=== PATIENT | female | born 2005 | race Caucasian/White ===

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

== ENCOUNTER 2023-04-21 09:31 | Outpatient (CLI) | payer BC, SELFPAY ==
[2023-04-21 10:17] LABS: Basophils Absolute Auto 0.02 K/mm3 (0.00-0.10); Basophils Percent Auto 0.4 % (0.0-1.0); Eosinophils Absolute Auto 0.07 K/mm3 (0.02-0.50); Eosinophils Percent Auto 1.5 % (1.0-6.0); Hematocrit 39.5 % (35.0-49.0); Hemoglobin 13.4 g/dL (12.0-15.0); Immature Granulocyte Absolute 0.02 K/mm3 (0.00-0.00); Immature Granulocyte Percent A 0.4 % (0.0-0.0); Lymphocytes Percent Auto 34.4 % (18.0-42.0); Mean Corpuscular HGB Conc 33.9 g/dL (32.0-36.0); Mean Corpuscular Hemoglobin 28.2 pg (27.0-31.0); Mean Platelet Volume 10.1 fl (9.2-11.8); Monocytes Absolute Auto 0.52 K/mm3 (0.10-0.90); Monocytes Percent Auto 11.2 % (2.0-11.0); Neutrophils Absolute Auto 2.4 K/mm3 (1.7-7.2); Neutrophils Percent Auto 52.1 % (50.0-70.0); Platelet Count Result 243 K/mm3 (150-420); Red Blood Count 4.76 M/mm3 (4.20-5.40); Red Cell Distribution Width 12.4 % (11.6-14.4); White Blood Count 4.7 K/mm3 (4.8-10.8)
[2023-04-21 11:38] LABS: Alanine Aminotransferase 20 U/L (14-59); Albumin Level 4.1 g/dL (3.4-5.0); Alkaline Phosphatase 27 U/L (46-116); Anion Gap 11 mmol/L (8-16); Aspartate Amino Transferase 12 U/L (15-37); Bilirubin,Total 0.5 mg/dL (0.00-1.00); Blood Urea Nitrogen 10 mg/dL (7-18); Carbon Dioxide 26 mmol/L (21-32); Chloride 104 mmol/L (98-108); Estimated Glomerular Filt Rate > 60; Free T4 Free Thyroxine 0.96 ng/dL (0.76-1.46); Glucose 81 mg/dL (70-99); Iron 82 ug/dL (50-170); Osmolality Calculated 290 mOsm/kg (285-295); Potassium 4.5 mmol/L (3.5-5.1); Sodium 141 mmol/L (136-145); Thyroid Stimulating Hormone 2.06 uIU/mL (0.36-3.74); Total Protein 7.6 g/dL (6.4-8.2); Vitamin B12 477 pg/mL (193-986)
== END 2023-04-21 09:32 | disposition home or self-care (01) ==
LOC: CHSLAB 09:33
PROVIDERS: PCP Nurse Practitioner Family; Visit Provider Nurse Practitioner Family
DX: R55 Syncope and collapse (principal)
CPT/HCPCS: 36415; 80053; 82607; 83540; 84439; 84443; 85025

== ENCOUNTER 2023-05-06 11:51 | Outpatient (CLI) | payer BC, SELFPAY ==
--- NOTE | ~2023-05-06 | XR_ITS ---
CORRECTED REPORT exam description change 05/18/23 [facility] This report was recreated on 05/18/23. Original report was Right Knee Technique: AP, lateral, and sunrise views were obtained. Clinical History: Pain Findings: No fracture or dislocation is seen. Osseous alignment is anatomic. Joint spaces are preserved without degenerative or erosive change. Soft tissues are unremarkable. No joint effusion is seen. Impression: Unremarkable right knee radiographs. Reviewed, dictated and finalized at location M. MTDD Impression: Unremarkable right knee radiographs.
== END 2023-05-06 11:52 | disposition home or self-care (01) ==
LOC: CHSIMG 11:53
PROVIDERS: PCP Nurse Practitioner Family; Visit Provider Nurse Practitioner Family
DX: M25.562 Pain in left knee (principal)
CPT/HCPCS: 73562

== ENCOUNTER 2023-05-10 08:25 | Outpatient (RCR) | payer BC, SELFPAY ==
--- NOTE | 2023-05-10 10:21 | PTOPEVAL1 ---
Assessment and note entered by LIV Leiva PT Evaluation Information Assessment Status Evaluation Diagnosis R knee pain Onset 04/30/23 Subjective Information Patient reports that pain in her R knee started on April 30 while playing volleyball. She reports she jumped and upon landing on knee, pain began in the right knee. She notes feeling a pop during this injury. She notes this pain got worse with continued activity and kneeling. Patient reports she has had x-ray imaging that found no evidence of fracture. however, she has not recieved an MRI scan. She reports Sep 2021 she had a R plica excision, and since then felt has had bouts of pain in the R knee prior to current injury. She reports she has been treating the pain with over the counter NSAIDs, ice/compression, and slight exercises. She notes she has had increased swelling in the R knee both with and without activity since, especially later on in the day. Patient reports the pain keeps her awake at night. She notes difficulty with stairs and walking throughout the day due to pain. She currently works at [employer], where she is required to stand to perform work activities. Reported Pain Level Pain Score 6: Self Report Assessment PT Clinical Summary Ms. Palumbo is a 18 y/o female who presents to skilled PT for R knee pain following a sports injury. Assessment suggests possible R medial meniscus and R MCL pathology. She presents with impairments in gait, ROM, and strength. She also displays notabel swelling and pain at rest and with activity in the R knee. Appropriate to continue skilled therapy to address impairments and improve patient's tolerance to mobility for work and daily activities. She would benefit from an MRI of the R knee to rule out any soft tissue injuries requiring more rapid attention from an ortho surgeon. evaluation and treatment performed under the supervision of Cecil Leiva DPT Plan of Care Interventions Electrical Stimulation,Gait Training,Hot Pack/Cold Pack,Intermittent Compression,Manual Therapy, Neuro Re-education,Patient/Caregiver Educati, Therapeutic Activities,Therapeutic Exercise PT Services Indicated Yes Treatment Frequency and 3 x/week fo
--- NOTE | 2023-05-10 10:21 | OPREHPOC ---
Outpatient Therapy Plan of Care This is a Multidisciplinary Plan of Care that may contain components documented by all disciplines (PT, OT, and ST.) PT Problem 1 PT Problem #1 Knowledge Deficit PT Goal 1 Goal Pt to demonstrate independence with HEP to improve progress made in PT sessions. Target Visit 7 PT Problem 2 PT Problem #2 Pain PT Goal 1 Goal 1. Patient to report no more than 3/10 pain with daily activities to improve tolerance for mobility . Target Visit 15 PT Problem 3 PT Problem #3 Impaired Strength PT Goal 1 Goal 1. Pt to increase R knee extension strength to at least 4+/5 to improve patient's ability to perform squat. 2. Pt to increase R knee flexion strength to at least 4+/5 to improve patient's ability to manuever stairs. Target Visit 15 PT Goal 1 Goal 1. Patient to improve R knee extension range of motion to 0 degrees to aid in acheiving R terminal knee extension during gait cycle. 2. Patient to improve R knee flexion range of motion to at least 140 degrees to allow for patient to squat to last picker item from floor. Target Visit 15 PT Problem 5 PT Problem #5 Impaired Functional Mobil PT Goal 1 Goal 1. Pt to ambulate with full R terminal knee extension to normalize gait. Target Visit 15
--- NOTE | 2023-06-22 16:38 | OPREHPOC ---
Outpatient Therapy Plan of Care This is a Multidisciplinary Plan of Care that may contain components documented by all disciplines (PT, OT, and ST.) PT Problem 1 PT Problem #1 Knowledge Deficit PT Goal 1 Goal Pt to demonstrate independence with HEP to improve progress made in PT sessions. Target Visit 7 Progress Partially Met Comment continue to progress PT Problem 2 PT Problem #2 Pain PT Goal 1 Goal 1. Patient to report no more than 3/10 pain with daily activities to improve tolerance for mobility . Target Visit 15 Progress Partially Met Comment continue to address PT Problem 3 PT Problem #3 Impaired Strength PT Goal 1 Goal 1. Pt to increase R knee extension strength to at least 5/5 to improve patient's ability to perform squat. 2. Pt to increase R knee flexion strength to at least 5/5 to improve patient's ability to manuever stairs. Target Visit 15 Progress Partially Met Comment goal updated PT Goal 1 Goal 1. Patient to improve R knee extension range of motion to 0 degrees to aid in acheiving R terminal knee extension during gait cycle. 2. Patient to improve R knee flexion range of motion to at least 140 degrees to allow for patient to squat to tack picker item from floor. Target Visit 15 Progress Partially Met Comment goal 2 met, continue to address goal 1 PT Problem 5 PT Problem #5 Impaired Functional Mobil PT Goal 1 Goal 1. Pt to ambulate with full R terminal knee extension to normalize gait. Target Visit 15 Progress Partially Met Comment continue to address
--- NOTE | 2023-06-22 16:38 | PTOPPROGNS ---
Assessment and note entered by JT File, PT Evaluation Information Assessment Status Progress Diagnosis R knee pain Onset 04/30/23 Subjective Information Patient reports a lower pain level in the R knee today. She notes that she visited the orthopedist yesterday where she received a cortisone injection in the knee. Since the injection she has had reduced pain both at rest and with actvities. she notes that her leg still feels weak compared to the opposite side. Assessment PT Clinical Summary Ms. Palumbo has attended 10 visits of skilled PT to address R knee pain, making good progress towards goals. At this visit, she demonstrates improved R knee ROM, strength, and flexibility. however, she continues to be limited compared to the L LE. Patient instructed on performing knee extension ROM exercises at home to work on gaining range at home. Appropriate to continue skilled therapy to address remaining strength deficits and normalize gait pattern to allow for patient to return to prior level of activity. Plan of Care Interventions Electrical Stimulation,Gait Training,Hot Pack/Cold Pack,Intermittent Compression,Manual Therapy, Neuro Re-education,Patient/Caregiver Educati, Therapeutic Activities,Therapeutic Exercise PT Services Indicated Yes Treatment Frequency and continue 3 x/week for remaining 5 visits Duration These treatments will address the objective and functional deficits as defined above. The patient will be advanced safely and appropriately in order for the patient to progress towards his/her prior level of function. Additional exercises will be introduced and as well as a comprehensive home exercise program upon discharge, if needed, ?to ensure carryover of functional gains achieved in the clinic. This treatment plan has been reviewed and agreement upon by the patient.
--- NOTE | 2023-07-13 17:04 | OPREHPOC ---
Outpatient Therapy Plan of Care This is a Multidisciplinary Plan of Care that may contain components documented by all disciplines (PT, OT, and ST.) PT Problem 1 PT Problem #1 Knowledge Deficit PT Goal 1 Goal Pt to demonstrate independence with HEP to improve progress made in PT sessions. Target Visit 7 Progress Met Comment continue to progress PT Problem 2 PT Problem #2 Pain PT Goal 1 Goal 1. Patient to report no more than 3/10 pain with daily activities to improve tolerance for mobility . Target Visit 15 Progress Not Met Comment continue to address PT Problem 3 PT Problem #3 Impaired Strength PT Goal 1 Goal 1. Pt to increase R knee extension strength to at least 5/5 to improve patient's ability to perform squat. 2. Pt to increase R knee flexion strength to at least 5/5 to improve patient's ability to manuever stairs. Target Visit 15 Progress Partially Met Comment goal updated PT Goal 1 Goal 1. Patient to improve R knee extension range of motion to 0 degrees to aid in acheiving R terminal knee extension during gait cycle. 2. Patient to improve R knee flexion range of motion to at least 140 degrees to allow for patient to squat to picker packer item from floor. Target Visit 15 Progress Met Comment goal 2 met, continue to address goal 1 PT Problem 5 PT Problem #5 Impaired Functional Mobil PT Goal 1 Goal 1. Pt to ambulate with full R terminal knee extension to normalize gait. Target Visit 15 Progress Met Comment continue to address
--- NOTE | 2023-07-13 17:04 | PTOPDC ---
Assessment and note entered by JT File, PT Evaluation Information Assessment Status Discharge Diagnosis R knee pain Onset 04/30/23 Subjective Information patient reports pain has slowly been creeping back up/returning over the past few weeks. she reports she especially has increased pain with stairs. she had an injection to the R knee in the beginning of june. Reported Pain Level Pain Score 5: Self Report Assessment PT Clinical Summary ms. blackwood presents to skilled PT with returning signs of pain in the R knee. she reports increased pain in the R knee with stairs again. she ambulates with normal gait mechanics, ambulates stairs reciprocally, has near full strength of the R knee, and full mobility of the R knee. she denotes pain with palpation of the medial jt line of the R knee, but some inconsistent special testing. she would benefit from DC of skilled PT today, and return to MD for follow up and next steps. Plan of Care PT Services Indicated Yes
== END 2023-07-13 16:50 | disposition home or self-care (01) ==
LOC: CHSPT 08:25
PROVIDERS: PCP Family Medicine; Visit Provider Nurse Practitioner Family
DX: M25.562 Pain in left knee (principal)
CPT/HCPCS: 97014; 97016; 97110; 97112; 97140; 97161; 97530; G0283

== ENCOUNTER 2024-08-17 09:33 | Outpatient (CLI) | payer BC, SELFPAY ==
--- NOTE | ~2024-08-17 | MR_ITS ---
EXAMINATION: MR knee RT wo con DATE: 08/17/2024 10:04 INDICATION: Right knee pain and intermittent swelling. TECHNIQUE: Magnetic resonance imaging (MRI) of the right knee was performed without intravenous contr ast. Sequences included coronal PD-weighted FSE, coronal PD-weighted FS FSE, sagittal T2-weighted FS E, sagittal PD-weighted FS FSE and axial PD weighted fat saturated FSE. COMPARISON: Right knee radiographs dated 05/06/2023 FINDINGS: Medial compartment: Medial meniscus is normal. Articular cartilage is normal. Lateral compartment: Lateral meniscus is normal. Articular cartilage is normal. Patellofemoral compartment: Articular cartilage is normal. Ligaments and tendons: Anterior and posterior cruciate ligaments are normal. The medial collateral ligament and fibular james ateral ligament complex are normal. The extensor mechanism is normal. The visualized medial and later al hamstring tendons as well as the iliotibial band are normal. Fluid: Physiologic amount of fluid in the joint space. No loose osteochondral bodies identified. Osseous/other: Normal marrow signal. No fracture or pathologic marrow replacing process. IMPRESSION: 1. Normal MRI of the right knee. Reviewed, dictated and finalized at location A.
== END 2024-08-17 09:34 | disposition home or self-care (01) ==
LOC: GOSHIMG 09:36
PROVIDERS: PCP Physician Assistant; Visit Provider Physician Assistant
DX: M25.561 Pain in right knee (principal); G89.29 Other chronic pain
CPT/HCPCS: 73721

== ENCOUNTER 2025-07-04 11:03 | Emergency (ER) | payer BC, SELFPAY ==
--- NOTE | ~2025-07-04 | CT_ITS ---
EXAMINATION: CT abdomen pelvis wo hollis, 07/04/2025 11:32 CDT HISTORY: abdominal pain /flank pain right-sided COMPARISON: No comparisons available. TECHNIQUE: CT scan of the abdomen and pelvis was performed without IV contrast. One or more of the following dose reduction techniques were used: automated exposure control, adjustment of the mA and/or kV according to patient size, use of iterative reconstruction technique. Unless otherwise stated, incidental findings do not require dedicated follow up imaging FINDINGS: CT abdomen: LUNG BASES: The lung bases are clear. The visualized portions of the heart and pericardium are unremarkable. LIVER: Unremarkable, liver contours intact, no lesions. SPLEEN: Unremarkable, no splenomegaly. KIDNEYS: Right Kidney: Unremarkable. No calculi. No hydronephrosis. Left Kidney: Unremarkable. No calculi. No hydronephrosis ADRENAL GLANDS: Unremarkable. PANCREAS: Unremarkable. GALLBLADDER/BILIARY: Unremarkable. No biliary dilatation. STOMACH AND ESOPHAGUS: Visualized stomach and esophagus within normal limits. BOWEL/MESENTERY: No colitis or diverticulitis. Appendix is air-filled. Mesentery normal. No dilated small bowel loops. ADENOPATHY/RETROPERITONEUM: No lymphadenopathy. AORTA/VASCULATURE: Normal caliber aorta. FREE FLUID OR FREE AIR: None. CT pelvis: SOLID ORGANS/REPRODUCTIVE: Unremarkable. BLADDER: Within normal limits. OSSEOUS STRUCTURES: No acute osseous abnormality.No suspicious lesions. OVERLYING SOFT TISSUES: Unremarkable. IMPRESSION: 1. No etiology identified to explain the patient's symptoms. Follow-up suggested if symptoms persist. Reviewed, dictated and finalized at location A. IMPRESSION: 1. No etiology identified to explain the patient's symptoms. Follow-up suggeste d if symptoms persist.
[2025-07-04 11:09] VITALS: BP 120/85; PULSE 78; RESP 18; TEMP 36.4; O2SAT 100
[2025-07-04 11:30] VITALS: BP 116/78; PULSE 80; RESP 17; O2SAT 100
--- OUTSIDE RECORDS SUMMARY | 2025-07-04 11:36 | XMS_ITS | Clinical Summary ---
Author Organization [facility] Address [facility] [address] [place] [address] Care Team Providers Care Assistant Pastry Chef Name Role Phone Shanique Barkley NP Primary Care Provider [phone] Cecil Sellers PT Unavailable [phone] Allergies No known active allergies Medications melatonin tablet Take 3 mg by mouth nightly as needed for sleep Active lisdexamfetamin e (VYVANSE) 40 mg capsule Take 1 capsule (40 mg total) by mouth every morning 06/18/2024 Active escitalopram (LEXAPRO) 10 mg tablet Take 1 tablet (10 mg total) by mouth daily Active Active Problems Problem Noted Date Diagnosed Date Plica syndrome of right knee 10/20/2021 Chronic pain of right knee 09/17/2021 Bone bruise 04/16/2021 Acute pain of right knee 03/10/2021 Injury of right knee 03/10/2021 Immunizations Immunization Administration Dates Next Due Meningococcal MCV4P (Menactra) 06/27/2020 Surgical History Surgery Date Site/Laterality Comments WISDOM TOOTH EXTRACTION 10/17/2018 - 10/16/2019 EYE SURGERY 10/17/2007 - 10/16/2008 Left eyelid KNEE ARTHROSCOPY W/ LATERAL RELEASE 10-07-2021 KNEE ARTHROSCOPY Medical History Medical History Date Comments Motion sickness Family History Medical History Relation Name Comments Arthritis Other Alzheimer's disease Paternal Grandfather Dallin Shanks on Diabetes Paternal Grandfather Dallin Palumbo Alzheimer's disease Paternal Grandmother Tonya beatty Anesthesia problems Neg Hx Relation Name Status Comments Other Paternal Grandfather Dallin Palumbo Paternal Grandmother Tonya Palumbo Social History Tobacco Use Types Packs/Day Years Used Date Smoking Tobacco: Never Smokeless Tobacco: Never Tobacco Cessation:Counseling Given: Not Answered AUDIT-C Answer Date Recorded Q1: How often do you have a drink containing alcohol? Never 02/11/2025 Q2: How many drinks containi ng alcohol do you have on a typical day when you are drinking? Patient does not drink Q3: How often do you have si x or more drinks on one occasion? Never 02/11/2025 Comments No Sex and Gender Information Value Date Recorded Sex Assigned at Not on file Legal Sex Female 5:41 AM ASSISTED LIVING ASSOCIATE Gender Identity Female 05/19/2023 5:37 PM CDT Sexual Orientation Straight 09/17/2021 10 :21 AM ASSISTED LIVING ASSOCIATE Obstetrics History Last Filed Vital Signs Vital Sign Reading Time Taken Comments Blood Pressure 112/74 02/20/2025 2:08 PM CDT Pulse 63 02/20/2025 2:08 PM CDT Temperature 36.5 C (97.7 F) 10/07/2021 10:06 AM ASSISTED LIVING ASSOCIATE Respiratory Rate 15 10/07/2021 10:08 AM ASSISTED LIVING ASSOCIATE Oxygen Saturation 100% 10/07/2021 10:08 AM ASSISTED LIVING ASSOCIATE Inhaled Oxygen Concentration - - Weight 51.3 kg (113 lb) 02/20/2025 2:08 PM CDT Height 157.5 cm (5' 2) 02/20/2025 2:08 PM CDT Body Mass Index 20.67 02/20/2025 2:08 PM CDT Plan of Treatment Health Maintenance Due Date Last Done Comments Cervical Cancer Screening 2003 Depression Screening 2003 Hepatitis C Screening 2003 DTaP/Tdap/Td Vaccine (1 - Tdap) 2014 Varicella Vaccines (1 of 2 - 13+ 2-dose series) 2016 HPV Vaccines (1 - 3-dose series) 2018 Meningococcal B Vaccine (1 o f 2 - Standard) 2019 Hepatitis B Screening 2021 Regular Well Visit/Exam 18-64 2021 Covid-19 Vaccine ( - 2024-2 6 season) 2025 10/30/2021, 05/25/2021, 05/04/2021 Influenza Vaccine (#1) 2025 Pneumococcal vaccine <65 Aged Out No longer eligible based on patient's age to complete this topic Insurance [employer] OOS [employer] OOS Advance Directives For more information, please contact: [phone] * Full Code (Latest Code Status on File) Date Activated Date Inactivated Comments 10/07/2021 9:13 AM 10/07/2021 2:17 PM Care Teams Assistant Pastry Chef Relationship Specialty Start Date End Date Shanique Barkley NP [address] [place] [address] PCP - General Nurse Practitioner 03/03/21 [place] [address] [place] [address] Physical Therapist Physical Therapy 04/02/21
[2025-07-04 11:43] LABS: Add Urine Microscopic? YES; Appearance Urine Clear (Clear); Glucose Urine UA Negative (Negative); Leukocyte Esterase Ur Negative LEU/UL (Negative); Nitrate Urine Negative (Negative); Specific Grav Ur 1.020 (1.010-1.020)
[2025-07-04 11:49] LABS: Pregnancy On Board Control Positive
[2025-07-04 11:53] LABS: Hematocrit 38.4 % (35.0-49.0); Hemoglobin 12.9 g/dL (12.0-15.0); Immature Granulocyte Percent A 0.2 % (0.0-0.0); Lymphocytes Absolute Auto 1.48 K/mm3 (1.10-4.50); Mean Corpuscular HGB Conc 33.6 g/dL (32-36); Mean Corpuscular Hemoglobin 26.9 pg (27.0-31.0); Mean Corpuscular Volume 80.2 fL (78.0-102.0); Nucleated Red Blood Cells Absolute Auto 0.00 K/mm3 (0.00-0.00); Nucleated Red Blood Cells Perc 0.0 % (0-0.0); Platelet Count Result 264 K/mm3 (150-420); Red Blood Count 4.79 M/mm3 (4.20-5.40); White Blood Count 4.6 K/mm3 (4.8-10.8)
--- NOTE | 2025-07-04 11:57 | PC.NURSE ---
Patient down in radiology
[2025-07-04 12:00] VITALS: BP 112/82; PULSE 85; RESP 18; O2SAT 100
--- OUTSIDE RECORDS SUMMARY | 2025-07-04 12:00 | XMS_ITS | Clinical Summary ---
Author Organization [facility] Address [address] [place] [address] Care Team Providers Care Clinical Audiologist Name Role Phone Shanique Barkley [facility] Primary Care Provider [phone] Allergies No known active allergies Medications No known medications Active Problems Problem Noted Date Diagnosed Date Sprain of medial collateral ligament of right knee, initial encounter 02/09/2021 Acute medial meniscus tear, right, initial encou nter 02/09/2021 Family History Medical History Relation Comments No Known Problems Father No Known Problems Mother Relation Status Comments Father Alive Mother Alive Social History Tobacco Use Types Packs/Day Years Used Date Smoking Tobacco: Never Smokeless Tobacco: Never Alcohol Use Standard Drinks/Week Comments Never 0 (1 standard drink = 0.6 oz pur e alcohol) AUDIT-C Answer Date Recorded Q1: How often do you have a drink containing alc ohol? 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 Gender Identity Not on file Sexual Orientation Not on file Last Filed Vital Signs Vital Sign Reading Time Taken Comments Blood Pressure - - Pulse - - Temperature - - Respiratory Rate - - Oxygen Saturation - - Inhaled Oxygen Concentration - - Weight 52.2 kg (115 lb) 02/26/2021 1:45 PM CDT Height 160 cm (5' 3) 02/26/2021 1:45 PM CDT Body Mass Index 20.37 02/26/2021 1:45 PM CDT Plan of Treatment Health Maintenance Due Date Last Done Comments Cervical Cancer Screening Pa p Smear (Age 21 to 29) Every 3 Years 2003 Cervical Cancer Screening 2003 Annual Physical 2006 HPV Vaccines (1 - 3-dose series) 2018 Meningococcal B Vaccine (1 o f 2 - Standard) 2019 Hepatitis C 2021 DTaP, Tdap and Td Vaccines ( 1 - Tdap) 2022 Hepatitis B Vaccines (1 of 3 - 19+ 3-dose series) 2022 COVID-19 Vaccine (1 - 4-2 5 season) 2025 Meningococcal Vaccine Completed 06/27/2020 Pneumococcal Vaccine: Pediat rics (0 to 5 Years) and At-Risk Patients (6 to 49 Years) Aged Out No longer eligi ble based on patient's age to complete this topic RSV Immunizations Under 20 Months Aged Out No longer eligible based on patient's age to complete this topic Insurance [employer] [place] [address] Care Teams Clinical Audiologist Relationship Specialty Start Date End Date Shanique Barkley, OZ [address] [place] [address] PCP - General NURSE PRACTITIONER 02/05/21
--- OUTSIDE RECORDS SUMMARY | 2025-07-04 12:01 | XMS_ITS | Clinical Summary ---
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 Obstetrics History Last Filed Vital Signs Vital Sign Reading Time Taken Comments Blood Pressure 112/74 02/20/2025 2:08 PM CDT Pulse 63 02/20/2025 2:08 PM CDT Temperature 36.5 C (97.7 F) 10/07/2021 10:06 AM CHILD CARE CENTRE 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 Respiratory Rate 15 10/07/2021 10:08 AM CHILD CARE CENTRE MANAGER Oxygen Saturation 100% 10/07/2021 10:08 AM CHILD CARE CENTRE MANAGER Inhaled Oxygen Concentration - - Weight 51.3 [...] patient's age to complete this topic Insurance [employer] OOS [employer] OOS Advance Directives For more information, please contact: [phone] * Full Code (Latest Code Status on File) Date Activated Date Inactivated Comments 10/07/2021 9:13 AM 10/07/2021 2:17 PM Care Teams Locomotive Electrician Relationship Specialty Start Date End Date Shanique Barkley NP [address] [place] [address] PCP - General Nurse Practitioner 03/03/21 [place] [address] [place] [address] Physical Therapist Physical Therapy 04/02/21
[2025-07-04 12:10] LABS: INR 1.0; Partial Thromboplastin Time 28.5 Sec (23.9-30.70); Prothrombin Time 11.0 Seconds (9.50-12.1)
[2025-07-04 12:16] LABS: Alanine Aminotransferase 16 U/L (6-35); Albumin Level 4.9 g/dL (3.5-5.1); Alkaline Phosphatase 33 U/L (38-126); Anion Gap 12 mmol/L (4-12); Aspartate Amino Transferase 23 U/L (14-36); Bilirubin,Total 0.9 mg/dL (0.2-1.3); Blood Urea Nitrogen 7 mg/dL (7-17); Calcium 9.8 mg/dL (8.4-10.2); Carbon Dioxide 24 mmol/L (22-30); Chloride 104 mmol/L (98-107); Estimated CRCL calculation 68 ml/min; Estimated Glomerular Filt Rate > 60; Glucose 88 mg/dL (65-110); Lipase 62 U/L (23-300); Osmolality Calculated 287 mOsm/kg (285-295); Potassium 4.0 mmol/L (3.4-5.0); Sodium 140 mmol/L (137-145); Total Protein 8.8 g/dL (6.3-8.2)
[2025-07-04] MEDS: ONDANSETRON INJ 4 MG/2 ML VIAL IV PUSH (12:21)
[2025-07-04] MEDS: SODIUM CHLORIDE 0.9% IV 1,000 ML 999 ML IV CONT (12:21)
[2025-07-04 12:30] VITALS: BP 100/76; PULSE 65; RESP 18; O2SAT 100
[2025-07-04 12:35] LABS: CRP < 0.5 mg/dL (<1.0)
--- NOTE | 2025-07-04 12:51 | ED_ITS ---
HPI - Female Genitourinary General Chief complaint: Urogenital-Female Stated complaint: right flank pain urge to urinate Time Seen by Provider: 07/04/25 11:06 Source: patient and family Mode of arrival: ambulatory Limitations: no limitations History of Present Illness HPI Narrative: this is a 20-year-old female with no significant past medical history presents with her mother with some right flank and growing pain on the right side with pain rated about a 7/10 with nausea with no vomiting does have dysuria with no hematuria no fever chills no chest pain no shortness of breath. MD elicited complaint: dysuria Onset (ago): hour(s) Location of symptoms: suprapubic and flank Severity: moderate Consistency: intermittent Related Data Home Medications ?Medication ?Instructions ?Recorded ?Confirmed ?Last Taken ?Type lisdexamfetamine 40 mg capsule mg PO 02/04/25 06/20/25 Unknown History Allergies Allergy/AdvReac Type Severity Reaction Status Date / Time bee venom protein (honey Allergy Intermediate Anaphylaxis Verified 07/04/25 11:21 bee) (bees) Bee stings Allergy Intermediate Other Uncoded 06/20/25 10:40 Review of Systems 2 Review of Systems: All systems reviewed & are unremarkable except as noted in HPI and below PMFSH Past Medical History Medical History Right knee pain Raynaud's syndrome without gangrene Surgical History Surgical History No history of previous surgery Family History Family History Mother Family history unremarkable Social History Social History Smoking status: Never smoker Tobacco type: cigarettes Alcohol intake: never Lack of Transportation: No Lack of Food: Never True Current Housing: I Have Housing Concerned About Future Housing: No Difficulty Paying Gas/Electric Bills: No Difficulty Paying for Meds: No Currently Unemployed: No Education: High School Diploma/GED Living arrangements: with family Exam 2 Const: General: healthy appearing and no acute distress Nutritional Appearance: well nourished Orientation/consciousness: patient oriented x3 Limitations: no limitations Eyes: Pupils: Equal, round and reactive pupils present Neck: Neck: normal visual inspection, no lymphadenopathy and no meningeal signs Chest: Chest palpation & inspection: normal inspection of the chest Resp: Effort & Inspection: normal respiratory effort Auscultation: clear to auscultation bilaterally Cardio: Rate: regular rate Rhythm: regular rhythm GI: GI Palp: Yes Soft to palpation Auscultation: normal bowel sounds : General: Yes bladder normal to palpation Urinary Catheter: Urinary Catheter: patent and draining Back/Spine/Pelvis: Back: no CVA tenderness Skin: General skin exam: normal color Rashes: no rashes Wounds: no wounds Neuro: General: patient oriented x3, moves all extremities and no meningeal signs Extrem: General: normal to inspection Psych: Appearance: grossly normal Course Course Emergency Course: CT scan performed shows no acute abnormalities UA shows positive red blood cells and positive bacteria, labs reviewed with no acute abnormalities patient received IV fluids along with some Zofran. Vital Signs Vital signs: Vital Signs Temperature 36.4 C 07/04/25 11:09 Pulse Rate 78 07/04/25 11:09 Respiratory Rate 18 07/04/25 11:09 Blood Pressure 120/85 07/04/25 11:09 Pulse Oximetry 100 07/04/25 11:09 Oxygen Delivery Room Air 07/04/25 11:09 Temperature 36.4 C 07/04/25 11:09 Pulse Rate 78 07/04/25 11:09 Respiratory Rate 18 07/04/25 11:09 Blood Pressure 120/85 07/04/25 11:09 Pulse Oximetry 100 07/04/25 11:09 Oxygen Delivery Room Air 07/04/25 11:09 MDM - Female Genitourinary Lab Data 07/04/25 11:44 07/04/25 11:44 Labs: Lab Results 07/04/25 07/04/25 Range/Units 11:38 11:44 WBC 4.6 L (4.8-10.8) K/mm3 RBC 4.79 (4.20-5.40) M/mm3 Hgb 12.9 (12.0-15.0) g/dL Hct 38.4 (35.0-49.0) % MCV 80.2 (78.0-102.0) fL MCH 26.9 L (27.0-31.0) pg MCHC 33.6 (32-36) g/dL RDW 12.7 (11.6-14.4) % Plt Count 264 (150-420) K/mm3 MPV 10.5 (9.2-11.8) fl Immature Gran % (Auto) 0.2 H (0.0-0.0) % Neut % (Auto) 56.4 (50.0-70.0) % Lymph % (Auto) 32.1 (18.0-42.0) % [place] % (Auto) 10.0 (2.0-11.0) % Eos % (Auto) 1.1 (1.0-6.0) % Baso % (Auto) 0.2 (0.0-1.0) % Lymph # (Auto) 1.48 (1.10-4.50) K/mm3 [place] # (Auto) 0.46 (0.10-0.90) K/mm3 Eos # (Auto) 0.05 (0.02-0.50) K/mm3 Baso # (Auto) 0.01 (0.00-0.10) K/mm3 Abs Immat Gran (auto) 0.01 H (0.00-0.00) K/mm3 Absolute Neuts (auto) 2.60 (1.70-7.20) K/mm3 Absolute Nucleated RBC 0.00 (0.00-0.00) K/mm3 Nucleated RBC % 0.0 (0-0.0) % PT 11.0 (9.50-12.1) Seconds INR 1.0 APTT 28.5 (23.9-30.70) Sec Sodium 140 (137-145) mmol/L Potassium 4.0 (3.4-5.0) mmol/L Chloride 104 (98-107) mmol/L Carbon Dioxide 24 (22-30) mmol/L Anion Gap 12 (4-12) mmol/L BUN 7 (7-17) mg/dL Creatinine 0.86 (0.7-1.0) mg/dL Estim Creat Clear Calc 68 ml/min Estimated GFR > 60 (59 - ) Glucose 88 (65-110) mg/dL Calculated Osmolality 287 (285-295) mOsm/kg Lactic Acid 1.0 (0.4-2.0) mmol/L Calcium 9.8 (8.4-10.2) mg/dL Total Bilirubin 0.9 (0.2-1.3) mg/dL AST 23 (14-36) U/L ALT 16 (6-35) U/L Alkaline Phosphatase 33 L (38-126) U/L C-Reactive Protein < 0.5 (<1.0) mg/dL Total Protein 8.8 H (6.3-8.2) g/dL Albumin 4.9 (3.5-5.1) g/dL Lipase 62 (23-300) U/L Urine Color Yellow (Yellow) Urine Appearance Clear (Clear) Urine pH 5.5 (5.0-8.0) Ur Specific Mallie 1.020 (1.010-1.020) Urine Protein Negative (Negative) Urine Glucose (UA) Negative (Negative) Urine Ketones Trace H (Negative) Ur Blood (Man) 3+ H (Negative) Urine Nitrate Negative (Negative) Urine Bilirubin Negative (Negative) Urine Urobilinogen 0.2 (0.2-1.0) mg/dL Leukocyte Esterase Rfl Negative (Negative) SHYAM/UL Urine RBC 21-50 H (0-2) /hpf Urine WBC 0-3 (0-3) /hpf Ur Squamous Epith Cells Rare (Few) /hpf Urine Bacteria 1+ H (None) /hpf Urine Mucus Few H /lpf Urine Test Negative Critical Care Time Critical Care Time Critical Care Time: No Discharge Plan Discharge Clinical Impression: Urinary tract infection Qualifiers: Urinary tract infection type: site unspecified Hematuria presence: without hematuria Qualified Code(s): N39.0 - Urinary tract infection, site not specified Patient Disposition: Home Condition: Stable Instructions: Antibiotic Form, Urinary Tract Infection in Women (ED), Dysuria (ED) Additional Instructions: take medication as prescribed and follow with primary within the next 3 to 5 days if symptoms persist or worsen. Patient Language: Indonesian Prescriptions: New tramadol 50 mg tablet 50 mg PO Q6H PRN (Reason: pain) Qty: 20 0RF ondansetron 4 mg tablet,disintegrating 4 mg PO Q6H PRN (Reason: nausea and vomiting) Qty: 14 0RF nitrofurantoin monohyd/m-cryst [Macrobid] 100 mg capsule 100 mg PO Q12H 7 Days Qty: 14 0RF Rx Instructions: must administer with a meal/food No Action lisdexamfetamine 40 mg capsule PO Follow-up/Referrals: Asehr Kwan DO [Primary Care Provider, [facility]] Time of Disposition: 12:58
[2025-07-04 13:00] VITALS: BP 109/97; PULSE 66; RESP 18; O2SAT 98
[2025-07-04 13:08] VITALS: BP 109/97; PULSE 66; RESP 18; TEMP 36.6; O2SAT 98
--- NOTE | 2025-07-07 17:46 | PC.NURSE ---
BLOOD CULTURE NO GROWTH PRELIMINARY
--- NOTE | 2025-07-11 13:50 | PC.NURSE ---
final blood cultures x2 reviewed. no growth in 5 days. no change in plan of care.
== END 2025-07-04 13:08 | disposition home or self-care (01) ==
PROVIDERS: Emergency Provider Emergency Medicine; PCP Family Medicine
DX: N39.0 Urinary tract infection, site not specified (principal)
CPT/HCPCS: 36415; 74176; 80053; 81001; 81025; 83605; 83690; 85025; 85610; 85730; 86140; 87040; 96361; 96374; 96375; 99284; J2405; J7030

== ENCOUNTER 2025-07-11 10:00 | Outpatient (CLI) | payer BC, SELFPAY ==
--- OUTSIDE RECORDS SUMMARY | 2025-07-11 10:59 | XMS_ITS | Clinical Summary ---
Author Organization 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
--- OUTSIDE RECORDS SUMMARY | 2025-07-11 11:00 | XMS_ITS | Clinical Summary ---
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 Gender Identity Female 05/19/2023 5:37 PM CDT Sexual Orientation Straight 09/17/2021 10 :21 AM EVALUATOR TRANSFER STUDENTS Obstetrics History Last Filed Vital Signs Vital Sign Reading Time Taken Comments Blood Pressure 112/74 02/20/2025 2:08 PM CDT Pulse 63 02/20/2025 2:08 PM CDT Temperature 36.5 C (97.7 F) 10/07/2021 10:06 AM EVALUATOR TRANSFER STUDENTS Respiratory Rate 15 10/07/2021 10:08 AM EVALUATOR TRANSFER STUDENTS Oxygen Saturation 100% 10/07/2021 10:08 AM EVALUATOR TRANSFER STUDENTS Inhaled Oxygen Concentration - - Weight 51.3 [...] patient's age to complete this topic Insurance [employer] OOS [employer] OOS Advance Directives For more information, please contact: [phone] * Full Code (Latest Code Status on File) Date Activated Date Inactivated Comments 10/07/2021 9:13 AM 10/07/2021 2:17 PM Care Teams Contracts Intern Relationship Specialty Start Date End Date Shanique Barkley NP [address] [place] [address] PCP - General Nurse Practitioner 03/03/21 [place] [address] [place] [address] Physical Therapist Physical Therapy 04/02/21
--- NOTE | 2025-07-30 13:22 | WPDHOLTEREM ---
Holter/Event Monitor Holter/Event Monitor Date of procedure: 07/11/25 Holter/Event Procedure: Event Monitor Indications: Tachycardia Conclusion: 1. 14 days event monitor on 07/11/25. 2. Underlying rhythm is sinus rhythm. HR range 40-172 bpm; average HR 85 bpm. HR at 40 bpm was on 07/21/25 at 12:31 am. HR at 172 bpm was on 07/16/25 at 10:54 am. 3. There are rare premature supraventricular complexes. No supraventricular tachycardia. 4. There are rare premature ventricular complexes and rare ventricular couplets. No ventricular tachycardia. 5. No significant pauses greater than 3 seconds. 6. Patient reports 8 episodes of symptoms of lightheadedness, shortness of breath, tingling of hands, loss of vision which demonstrate sinus rhythm, HR range 74-149 bpm with 1 episode with PVC.
== END 2025-07-11 10:01 | disposition home or self-care (01) ==
PROVIDERS: PCP Family Medicine; Visit Provider Nurse Practitioner Family
DX: R00.0 Tachycardia, unspecified (principal)
CPT/HCPCS: 93246

== ENCOUNTER 2025-07-16 20:55 | Emergency (ER) | payer BC, SELFPAY ==
--- OUTSIDE RECORDS SUMMARY | 2025-07-16 20:58 | XMS_ITS | Clinical Summary ---
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
--- NOTE | 2025-07-16 20:59 | ED.ABDPAIN ---
HPI - Abdominal Pain General Chief Complaint: Urogenital-Female Stated Complaint: abdominal pain Time Seen by Provider: 07/16/25 20:57 Source: patient and family Mode of arrival: ambulatory Limitations: no limitations History of Present Illness HPI narrative: 20-year-old female with a history of ADHD, questionable pots presented to the ED on 07/04/2025 for right flank pain. The patient was noted to have hematuria. The patient had a CT of the abdomen and pelvis which did not show any abnormality. The patient was treated with nitrofurantoin. Pain resolved the same day. The patient presents to the ED today -- Right flank pain. The pain started yesterday but it got worse at 2:00 p.m.. The pain radiates around the flank down to her urinary passage. Pain is constant with Intermittent worsening. No dysuria or hematuria. No fever or chills. No prior history of kidney stones. LMP on 07/02/2025 MD elicited complaint: flank pain Onset (ago): day(s) ( 1 day) Pain Consistency: constant and intermittent Location: R flank Severity: severe Quality: cramping Radiation: R flank Exacerbating factors: nothing Relieving factors: nothing Associated symptoms: denies other symptoms Related Data Home Medications ?Medication ?Instructions ?Recorded ?Confirmed ?Last Taken ?Type lisdexamfetamine 40 mg capsule mg PO 02/04/25 06/20/25 Unknown History Allergies Allergy/AdvReac Type Severity Reaction Status Date / Time bee venom protein (honey Allergy Intermediate Anaphylaxis Verified 07/16/25 21:03 bee) (bees) Bee stings Allergy Intermediate Other Uncoded 06/20/25 10:40 Review of Systems Review of Systems: All systems reviewed & are unremarkable except as noted in HPI and below Constitutional: Constitutional: Reports as per HPI and Reports no additional constitutional complaints Eyes: Eyes: Reports as per HPI and Reports no additional eye complaints ENT: Reports system reviewed and no additional complaints, except as documented and Reports as per HPI Cardiovascular: Cardiovascular: Reports as per HPI and Reports no additional cardiovascular complaints Respiratory: Respiratory: Reports as per HPI and Reports no additional respiratory complaints Gastrointestinal: Gastrointestinal: Reports as per HPI and Reports no additional gastrointestinal complaints Genitourinary: Genitourinary: Reports no additional female genitourinary complaints and Reports as per HPI Musculoskeletal: Musculoskeletal: Reports no additional musculoskeletal complaints and Reports as per HPI Integumentary/Breasts: Skin/Breast: Reports system reviewed and no additional complaints, except as docu and Reports as per HPI Neurologic: Reports system reviewed and no additional complaints, except as documented and Reports as per HPI Psychiatric: Psychiatric: Reports no additional psychiatric complaints and Reports as per HPI Endocrine: Endocrine: Reports no additional endocrine complaints and Reports as per HPI Hematologic/Lymphatic: Hematologic/Lymphatic: Reports no additional hematologic/lymphatic complaints and Reports as per HPI Allergic/Immunologic: Allergic/Immunologic: Reports no additional allergic/immunologic complaints and Reports as per HPI [facility] Past Medical History Medical History Right knee pain Raynaud's syndrome without gangrene Surgical History Surgical History No history of previous surgery Family History Family History Mother Family history unremarkable Social History Social History Smoking status: Never smoker Tobacco type: cigarettes Alcohol intake: never Lack of Transportation: No Lack of Food: Never True Current Housing: I Have Housing Concerned About Future Housing: No Difficulty Paying Gas/Electric Bills: No Difficulty Paying for Meds: No Currently Unemployed: No Education: High School Diploma/GED Living arrangements: with family Exam Narrative: vitals are stable. Const: Orientation/consciousness: patient oriented x3 Limitations: no limitations HENMT: Head: normal to inspection Ears: external ears normal Face/Nose/Sinus: Normal external nose present Face and sinus: normal facial exam Mouth: Yes Normal oral and palatal mucosa present Throat: posterior oropharynx normal Eyes: Conjunctivae: conjunctivae normal Pupils: Equal, round and reactive pupils present EOM: EOMs intact bilaterally Direct Ophthalmoscopy: no photophobia Neck: Neck: normal visual inspection, no lymphadenopathy and no meningeal signs Chest: Chest palpation & inspection: normal inspection of the chest Resp: Effort & Inspection: normal respiratory effort Auscultation: clear to auscultation bilaterally Cardio: Rate: regular rate Rhythm: regular rhythm GI: GI Palp: Yes Soft to palpation Auscultation: normal bowel sounds Other: No tenderness/rigidity / rebound. : General: Yes no CVA tenderness Back/Spine/Pelvis: Back: no CVA tenderness Skin: General skin exam: normal color Rashes: no rashes Wounds: no wounds Neuro: General: patient oriented x3, moves all extremities, no meningeal signs, no focal motor deficits and CN's II-XI intact bilaterally Cranial nerves: Yes Nystagmus not present Speech: normal speech Gait exam (Neuro): Normal gait present Psych: Mental Status: mental status grossly normal Affect: normal affect Attitude: cooperative Course Course Emergency Course: Right flank pain-- patient had a negative UA. Blood work is unremarkable except for elevated creatinine. Vital Signs Vital signs: Vital Signs Temperature 36.6 C 07/16/25 21:02 Pulse Rate 86 07/16/25 21:02 Respiratory Rate 20 07/16/25 21:02 Blood Pressure 111/63 07/16/25 21:02 Pulse Oximetry 97 07/16/25 21:02 Oxygen Delivery Room Air 07/16/25 21:02 Temperature 36.6 C 07/16/25 21:02 Pulse Rate 86 07/16/25 21:02 Respiratory Rate 20 07/16/25 21:02 Blood Pressure 111/63 07/16/25 21:02 Pulse Oximetry 97 07/16/25 21:02 Oxygen Delivery Room Air 07/16/25 21:02 MDM - Abdominal Pain MDM Narrative Medical decision making narrative: Right flank pain Differential Diagnosis Differential diagnosis: Likely calculus of kidney and other ( pyelonephritis) Medical Records Attestation: I reviewed the patient's medical records. Lab Data Attestation: I reviewed the patient's lab results. 07/16/25 21:15 07/16/25 21:15 Labs: Lab Results 07/16/25 07/16/25 Range/Units 21:15 21:25 WBC 8.6 (4.8-10.8) K/mm3 RBC 4.60 (4.20-5.40) M/mm3 Hgb 12.3 (12.0-15.0) g/dL Hct 37.0 (35.0-49.0) % MCV 80.4 (78.0-102.0) fL MCH 26.7 L (27.0-31.0) pg MCHC 33.2 (32-36) g/dL RDW 12.5 (11.6-14.4) % Plt Count 285 (150-420) K/mm3 MPV 9.9 (9.2-11.8) fl Immature Gran % (Auto) 0.4 H (0.0-0.0) % Neut % (Auto) 69.0 (50.0-70.0) % Lymph % (Auto) 19.5 (18.0-42.0) % [place] % (Auto) 10.5 (2.0-11.0) % Eos % (Auto) 0.4 L (1.0-6.0) % Baso % (Auto) 0.2 (0.0-1.0) % Lymph # (Auto) 1.67 (1.10-4.50) K/mm3 [place] # (Auto) 0.90 (0.10-0.90) K/mm3 Eos # (Auto) 0.03 (0.02-0.50) K/mm3 Baso # (Auto) 0.02 (0.00-0.10) K/mm3 Abs Immat Gran (auto) 0.03 H (0.00-0.00) K/mm3 Absolute Neuts (auto) 5.90 (1.70-7.20) K/mm3 Absolute Nucleated RBC 0.00 (0.00-0.00) K/mm3 Nucleated RBC % 0.0 (0-0.0) % Sodium 137 (137-145) mmol/L Potassium 4.5 (3.4-5.0) mmol/L Chloride 100 (98-107) mmol/L Carbon Dioxide 24 (22-30) mmol/L Anion Gap 13 H (4-12) mmol/L BUN 13 D (7-17) mg/dL Creatinine 1.12 H (0.7-1.0) mg/dL Estim Creat Clear Calc 53 ml/min Estimated GFR > 60 (59 - ) Glucose 83 (65-110) mg/dL Calculated Osmolality 283 L (285-295) mOsm/kg Lactic Acid 1.2 (0.4-2.0) mmol/L Calcium 9.9 (8.4-10.2) mg/dL Total Bilirubin 0.9 (0.2-1.3) mg/dL AST 33 (14-36) U/L ALT 28 (6-35) U/L Alkaline Phosphatase 35 L (38-126) U/L Total Protein 8.6 H (6.3-8.2) g/dL Albumin 4.9 (3.5-5.1) g/dL Lipase 51 (23-300) U/L Urine Color Light yellow (Yellow) Urine Appearance Clear (Clear) Urine pH 7.0 (5.0-8.0) Ur Specific [place] 1.010 (1.010-1.020) Urine Protein Negative (Negative) Urine Glucose (UA) Negative (Negative) Urine Ketones 2+ H (Negative) Ur Blood (Man) Trace-intact H (Negative) Urine Nitrate Negative (Negative) Urine Bilirubin Negative (Negative) Urine Urobilinogen 0.2 (0.2-1.0) mg/dL Leukocyte Esterase Rfl Negative (Negative) SHYAM/UL Urine Test Negative Discharge Plan Discharge Clinical Impression: Acute flank pain Patient Disposition: Home Condition: Stable Instructions: Antibiotic Form, Flank Pain (ED) Patient Language: [place]i Prescriptions: New ketorolac 10 mg tablet 10 mg PO Q8H PRN (Reason: pain) Qty: 20 0RF Rx Instructions: maximum total duration of 5 days from all oral, intranasal, or parenteral formulations No Action tramadol 50 mg tablet 50 mg PO Q6H PRN (Reason: pain) Qty: 20 0RF ondansetron 4 mg tablet,disintegrating 4 mg PO Q6H PRN (Reason: nausea and vomiting) Qty: 14 0RF nitrofurantoin monohyd/m-cryst [Macrobid] 100 mg capsule 100 mg PO Q12H 7 Days Qty: 14 0RF Rx Instructions: must administer with a meal/food lisdexamfetamine 40 mg capsule PO Follow-up/Referrals: Asher Kwan DO [Primary Care Provider, [facility]] Time of Disposition: 22:53
--- OUTSIDE RECORDS SUMMARY | 2025-07-16 20:59 | XMS_ITS | Data Portability ---
Author Organization [place] [facility] [employer], Main Office Address [address] [place] [address] Assessment Encounter Date Assessment Date Assessment LastModified by Organization Details LastModified Time 06/21/2023 06/21/2023 18-year-old patient presents today with right knee pain that has been going on for a few years but was recently exacerbated while playing soccer April 30. She states she twisted her knee, fell, and heard a crack. Since then she has been having pain with bearing weight, range of motion, and swelling. for treatment she has tried physical therapy which she states has not helped, meloxicam which does not help, and bracing. She has been worked up for knee pain the past and underwent a arthroscopy with plica removal in 2020. She states the pain was better for a little while after but it eventually returned. Review of systems per patient questionnaire Imaging: X-rays reviewed show no acute bony abnormality, no fracture. Preserved joint space throughout. MRI reviewed was clean, shows all structures intact. Physical exam: Antalgic gait. Pain with flexion and extension the leg, ROM 0-140 without crepitus. Pain with palpitation throughout, worst pain being on the medial side over the bone. Positive Gorge's. Stable Estefani's with firm endpoint. Stable posterior drawer, varus and valgus stress. Normal patellar mobility. Sensation intact. Patient states she has been taking meloxicam for some time now and has not felt any improvement. We will have her switch to Celebrex and see if that works better for her. We also discussed the risks and benefits of a cortisone injection. Since she can barely walk without feeling extreme pain we recommend trying the injection today. She agreed to proceed. We will also provide her with a note to park closer to the door at school. We recommend that she continue doing PT exercises at home on her own and bracing as needed. We will see her back as needed for pain. [email or web address] Not available 06/22/2023 09:10:02 08/24/2023 08/24/2023 18-year-old female presents for her right knee. She has a history of right knee pain, and had a an arthroscopy with plica resection in 2020. She had another injury in April of this year, when she was playing soccer and felt a pop in the knee. She was treated with a period of conservative management including anti-inflammator ies, physical therapy, and a cortisone injection. She reports the injection lasted for about a month before wearing off. She had improvement in her range of motion physical therapy, but still has pain in deep flexion and still feels like it gives out often. She still has significant swelling, and feelings of catching in the knee. Physical exam: Previous portal incisions are well healed. She has 2+ effusion. Range of motion 0-140, no crepitus, pain in terminal flexion. Positive Gorge's. 1A Estefani's, stable posterior drawer, stable varus and valgus stress. Positive Thessaly. MRI was reviewed, demonstrating intact ligaments. She does have a ramp lesion of the posterior medial meniscus She has a medial meniscus tear, as evidence by her exam findings and the ramp lesion on MRI, which has failed to improve with conservative measures including anti-inflammator ies, physical therapy, and cortisone injection. We discussed that the next step would be to do surgery, which would be a knee arthroscopy and meniscus repair. Risks, benefits, and alternatives to surgery were discussed with the patient. Risks include but are not limited to pain, stiffness, infection, bleeding, blood clot, injury to other structures including nerves or blood vessels, need for future surgery, and anesthesia risks. We discussed the goal of surgery is to improve symptoms but there is no guarantee of improvement and it is possible the patient's condition is worse after surgery. Patient agreed and would like to proceed. Not available 08/24/2023 21:55:22 09/20/2023 09/20/2023 18-year-old female presents for follow-up of her right knee, status post arthroscopy partial medial meniscectomy on 09/06/2023. She had originally a ramp lesion MRI, which was stable upon arthroscopic evaluation. She has been doing Some home therapy, which has been helped. She still has some tightness in bending her knee. Incisions are clean dry intact without any signs of infection. No tenderness around the surgical site. She has full extension, flexion to 130. Stable ligaments. Neurovascular intact. At this point, she is progressing well. We will have her continue doing her exercises working on strengthening and range of motion. We will see her back in 4 weeks for her next recheck. Not available 09/20/2023 16:46:56 10/19/2023 10/19/2023 18-year-old female presents for follow-up of her right knee status post right knee arthroscopy and partial medial meniscectomy on 09/06/2023. Overall she is doing well. She has minimal pain. She has been working on exercises for her knee at home, reports no issues. She still has an area of numbness over the medial thigh extending to the knee and upper calf, which she relates to the block she received. She has had no catching locking or other mechanical symptoms since his surgery. Incisions are well healed. She has no tenderness around the knee. She does have diminished sensation in the previously described area. Range of motion 0-140, some discomfort with terminal flexion. Negative Gorge's. Stable ligaments. At this point she is doing well. She should progress with activities as tolerated. We will see her back in another 6 weeks for recheck. Not available 10/19/2023 14:05:37 11/30/2023 11/30/2023 18-year-old female presents for follow-up of her right knee. she had a right knee scope and partial medial meniscectomy on 09/06/2023. Overall she is feeling good. She has minimal pain, 1/10. She has not taking any medications. She is doing home exercises for the knee. She still reports some numbness in the distribution of her medial thigh extending down past the knee. She has no focal tenderness palpation around the knee. Nonantalgic gait. Full range of motion. Stable ligaments. Negative Gorge's. She does have diminished sensation subjectively over the medial thigh as previously described At this point her knee is doing well and not giving her any problems. We discussed that her numbness in that distribution may be from the adductor block, and the nerve may need some more time to wake up from that. We will continue to monitor it. In terms of follow up, she may be PRN for the knee. She may call with any questions or concerns, or any changes in her symptoms. Not available 12/02/2023 00:51:19 Plan of Treatment Reminders Order Date Submit Date Provider Last Modified By Organization Details Last Modified Time Details Appointments None recorded. Lab None recorded. Referral None recorded. Procedures injection/a spiration joint/bursa (PROC) - in office procedure, administere d by provider 2022 023 [email or web address] In-Office Order, Internal Use Only DO Not Attach Compendium DO Not Attach Compendium, Do Not Delete/merge, [id number] 3 11:36:06 Surgeries None recorded. Imaging None recorded. Medication Orders Kenalog 10 mg/mL suspension for injection 2022 023 [email or web address] [facility] #[id number], [address] [place], [place], [id number], 3 22:36:08 ropivacaine (PF) 5 mg/mL (0.5 %) injection solution 2022 023 [email or web address] [facility] [employer] [id number], [address], [place], [id number], 3 22:36:08 Celebrex 200 mg capsule 2022 023 [facility] [employer] [facility] #[id number], [address], [place], [id number], 4 16:49:48 Patient TargetsNo targets recorded. Patient InstructionsNo instructions recorded. Reason for Referral None Reported. Results Created Date Observation Date Name Description Value Unit Range Abnormal Flag Note LastModifiedBy Organization Detail LastModifiedTime 06/21/20 23 XR, knee No observ ation record ed. [email or web address] Not Available 02/2023 11:58:52 Result Notes None recorded. Problems Name Problem SNOMED Code Status Onset Date Resolution Date Notes Provider Name and Address Organization Details Recorded Time Pain of right knee joint 895105911599478 Active 2022 Komal Guillaume , ATC L null, [employer] 3 11:34:40 Tear of medial meniscus of knee 892526597 Active 2022 Santos Conde MD [address], [address], [place], [address], [employer] 3 21:55:34 Tear of medial meniscus of knee 987791908 Active 2022 Santos Conde MD [address], [facility] [address], [place], [address], [facility] 3 09:08:20 Problem Notes None recorded. Procedures Surgical History Date Name Laterality Status Provider Name and Address Organization Details Recorded Time 3 Ortho - Cortisone Injection completed Nadya Palm NP [address], [facility] [address], [place], [address], [employer] 06/22/2023 09:09:56 1 Knee arthroscopy/martinez rgery completed Elizabeth Morales [facility] 06/21/2023 11:09:40 Imaging Results None recorded. Procedure Notes None recorded. Medical Equipment None Reported. Medications Name Sig Start Date Stop Date Status Note LastModified by Organization Details LastModified Time celecoxib 200 mg capsule TAKE 1 CAPSULE BY MOUTH EVERY DAY 11/29 completed Not Available Not Available Not Available hydrocodone 5 mg-acetamin ophen 325 mg tablet TAKE 1 TABLET BY MOUTH EVERY 6 HOURS active Not Available Not Available No t Available meloxicam 7.5 mg tablet 11/29 completed Not Available Not Available Not Available Kenalog 10 mg/mL suspension for injection Take 1 mL by injection route. 2022 active [facility]: 0003- 0494- 20 Not Available Not Available Not Available aspirin 81 mg chewable tablet CHEW AND SWALLOW 1 TABLET BY MOUTH TWICE DAILY active Not Available Not Available No t Available ropivacaine (PF) 5 mg/mL (0.5 %) injection solution Take 4 mL by injection route. 2022 active [facility] [address] -[address]- 01 Not Available Not Available Not Available Vitals Date Recorded Body height Body mass index (BMI) [Percentile] Per age and sex Body mass index (BMI) Body weight Provider Name and Address Organization Details Last Updated DateTime 10/19/2023 160.02 cm 27 % 20 kg/m2 57068.94 sal Leslie Garcia Marcos [facility] [employer] [facility] 10/19/2023 09:32:25 Date Recorded Body height Body mass index (BMI) Body mass index (BMI) [Percentile] Per age and sex Body weight Provider Name and Address Organization Details Last Updated DateTime 11/30/2023 160.02 cm 20 kg/m2 27 % 79767.94 sal Lynette King CNA [place] [employer] [facility] [employer] 11/30/2023 11:04:28 Date Recorded Body height Body mass index (BMI) [Percentile] Per age and sex Body mass index (BMI) Body weight Provider Name and Address Organization Details Last Updated DateTime 06/21/2023 160.02 cm 33 % 20.4 kg/m2 20153.12 g Elizabeth Morales [facility] [employer] 06/21/2023 11:03:37 Date Recorded Body height Body mass index (BMI) Body mass index (BMI) [Percentile] Per age and sex Body weight Pain severity - 0-10 verbal numeric rating [Score] - Reported Provider Name and Address Organization Details Last Updated DateTime 08/24/2023 160.02 cm 20.4 kg/m2 33 % 49776.1 2 g 7 Leslie Garcia [facility] [employer] [facility] [employer] 15:04:13 Date Recorded Body height Body mass index (BMI) [Percentile] Per age and sex Body mass index (BMI) Body weight Pain severity - 0-10 verbal numeric rating [Score] - Reported Provider Name and Address Organization Details Last Updated DateTime 09/20/2023 160.02 cm 33 % 20.4 kg/m2 61678.1 2 g 3 Leslie Garcia Marcos [place] [employer] [facility] [employer] [facility] 09:33:58 Social History Question Answer Notes LastModified by Organizat ion Details LastModified Time Tobacco Smoking Status Never Smoker Elizabeth gonzalez [facility] [employer] [facility] 06/21/2023 11:04:06 What Was The Date Of Your Most Recent Tobacco Screening? 06/21/2023 [email or web address] Information not available 06/21/2023 Sex: Unknown Functional Status Question Answer Note LastModified by Organization D etails LastModified Time What is your level of alcohol consumption? None Information not available 06/21/2023 Mental Status None recorded. Family History Relationship Description Onset Age of this Age Resolved Age Notes LastModified by Organization Details LastModified Time Father No current problems or disability [email or web address] Not available 02/2023 11:03:51 Mother No current problems or disability [email or web address] Not available 02/2023 11:03:51 Medical History No medical history recorded. Gynecological HistoryNo gynecological history recorded. Obstetrics History GPAL:G 0 P 0 0 0 0 Past Encounters Encounter ID Performer Location Encounter Start Date Encounter Closed Date Diagnosis/Indication Diagnosis SNOMED-CT Code Diagnosis ICD10 Code Diagnosis IMO Codes Diagnosis Note [id number] Santos Conde MD [facility] [place] [address] [place] [address] 06/21/2023 10:48:44 06/21/2023 11:39:47 Pain of right knee joint 5202985972 37740 M25.971 [id number] Santos Conde MD [facility] [place] [address] [place] [address] 08/24/2023 14:52:02 08/24/2023 15:41:05 Pain of right knee joint 0486217583 23853 M25.561 Tear of me dial meniscus of knee 240297843 S83.241A [id number] Santos Conde MD [facility] [place] [address] [place] [address] 09/20/2023 09:30:32 09/20/2023 09:57:36 Pain of right knee joint 3016245410 71347 M25.304 [id number] Santos Conde MD [facility] [place] [address] [place] [address] 10/19/2023 09:30:48 10/19/2023 09:51:55 Pain of right knee joint 9569107069 86177 M25.561 Tear of me dial meniscus of knee 902762706 S83.241A [id number] Santos Conde MD [facility] [place] [address] [place] [address] 11/30/2023 11:02:17 11/30/2023 12:33:13 Tear of medial meniscus of knee 481144398 S83.241A Pain of ri ght knee joint 9522525984 74876 M25.561 Health Concerns Section Related Observation LastModified by Organization Detai ls LastModified Time None Recorded Concern Status LastModified by Organization Details LastModified Time None Recorded Advance Directives Directive None Recorded Payers Insurance Date Sequence Insurance Name Policy Number Policy Hurt Covered Member ID Hurt Member ID Guarantor Name 12/08/2023 1 [facility] ([facility] [id number] Dallin Palumbo [id number] Annabelle Palumbo OBGyn Episode No OBEpisode recorded.
--- OUTSIDE RECORDS SUMMARY | 2025-07-16 20:59 | XMS_ITS | Clinical Summary ---
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 Gender Identity Female 05/19/2023 5:37 PM CDT Sexual Orientation Straight 09/17/2021 10 :21 AM 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 Obstetrics History Last Filed Vital Signs Vital Sign Reading Time Taken Comments Blood Pressure 112/74 02/20/2025 2:08 PM CDT Pulse 63 02/20/2025 2:08 PM CDT Temperature 36.5 C (97.7 F) 10/07/2021 10: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 Respiratory Rate 15 10/07/2021 10:08 AM 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 Oxygen Saturation 100% 10/07/2021 10:08 AM 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 Inhaled Oxygen Concentration - - Weight 51.3 [...] patient's age to complete this topic Insurance [employer] OOS [employer] O[employer] Advance Directives For more information, please contact: [phone] * Full Code (Latest Code Status on File) Date Activated Date Inactivated Comments 10/07/2021 9:13 AM 10/07/2021 2:17 PM Care Teams Paper Products Inspector Relationship Specialty Start Date End Date Shanique Barkley NP [address] [place] [address] PCP - General Nurse Practitioner 03/03/21 [place] [address] [place] [address] Physical Therapist Physical Therapy 04/02/21
[2025-07-16 21:02] VITALS: BP 111/63; PULSE 86; RESP 20; TEMP 36.6; O2SAT 97
[2025-07-16 21:22] LABS: Hematocrit 37.0 % (35.0-49.0); Hemoglobin 12.3 g/dL (12.0-15.0); Immature Granulocyte Percent A 0.4 % (0.0-0.0); Lymphocytes Absolute Auto 1.67 K/mm3 (1.10-4.50); Mean Corpuscular HGB Conc 33.2 g/dL (32-36); Mean Corpuscular Hemoglobin 26.7 pg (27.0-31.0); Mean Corpuscular Volume 80.4 fL (78.0-102.0); Nucleated Red Blood Cells Absolute Auto 0.00 K/mm3 (0.00-0.00); Nucleated Red Blood Cells Perc 0.0 % (0-0.0); Platelet Count Result 285 K/mm3 (150-420); Red Blood Count 4.60 M/mm3 (4.20-5.40); White Blood Count 8.6 K/mm3 (4.8-10.8)
[2025-07-16 21:31] LABS: Add Urine Microscopic? NO; Appearance Urine Clear (Clear); Glucose Urine UA Negative (Negative); Leukocyte Esterase Ur Negative LEU/UL (Negative); Nitrate Urine Negative (Negative); Specific Grav Ur 1.010 (1.010-1.020)
[2025-07-16 21:34] LABS: Lipase 51 U/L (23-300)
[2025-07-16 21:35] LABS: Alanine Aminotransferase 28 U/L (6-35); Albumin Level 4.9 g/dL (3.5-5.1); Alkaline Phosphatase 35 U/L (38-126); Anion Gap 13 mmol/L (4-12); Aspartate Amino Transferase 33 U/L (14-36); Bilirubin,Total 0.9 mg/dL (0.2-1.3); Blood Urea Nitrogen 13 mg/dL (7-17); Calcium 9.9 mg/dL (8.4-10.2); Carbon Dioxide 24 mmol/L (22-30); Chloride 100 mmol/L (98-107); Estimated CRCL calculation 53 ml/min; Estimated Glomerular Filt Rate > 60; Glucose 83 mg/dL (65-110); Osmolality Calculated 283 mOsm/kg (285-295); Potassium 4.5 mmol/L (3.4-5.0); Sodium 137 mmol/L (137-145); Total Protein 8.6 g/dL (6.3-8.2)
[2025-07-16 21:35] LABS: Pregnancy On Board Control Positive
[2025-07-16] MEDS: LACTATED RINGERS 1,000 ML 999 ML IV CONT (22:27)
[2025-07-16] MEDS: KETOROLAC 30 MG/ML VIAL (*BKC) IV PUSH (22:29)
== END 2025-07-17 00:13 | disposition home or self-care (01) ==
PROVIDERS: Emergency Provider Internal Medicine Critical Care Medicine; PCP Family Medicine
DX: R10.9 Unspecified abdominal pain (principal)
CPT/HCPCS: 36415; 80053; 81003; 81025; 83605; 83690; 85025; 96361; 96374; 99284; J1885; J7120